=== PATIENT | male | born 1990 | race Caucasian/White ===

== ENCOUNTER 2017-06-06 13:03 | Emergency (ER) | payer SELFPAY ==
[~2017-06-06] VITALS: Wt 88.5 kg
[2017-06-06 13:41] LABS: BILIRUBIN NEGATIVE (NEGATIVE); BLOOD TRACE-LYSED (NEGATIVE); CLARITY SL CLOUDY (CLEAR); COLOR YELLOW (YELLOW); GLUCOSE NEGATIVE (NEGATIVE); KETONE 1+ (NEGATIVE); LEUKO ESTERASE NEGATIVE (NEGATIVE); NITRITE NEGATIVE (NEGATIVE); PH 5.5 (5.0-9.0); UROBILINOGEN 0.2 E.U./dl (0.2-1.0)
[2017-06-06 13:51] LABS: BASO # 0.1 10*3/uL (0.0-0.1); BASO % 0.5 % (0.0-1.0); EOS % 0.3 % (1.0-4.0); HEMOGLOBIN 15.1 g/dl (14.0-18.0); LYMPH # 1.4 10*3/uL (1.3-4.4); LYMPH % 13.5 % (27.0-41.0); MEAN CELL VOLUME 86.4 fl (80.0-94.0); MEAN CORPUSCULAR HGB CONC 33.6 g/dl (33.0-37.0); MEAN PLATELET VOLUME 9.4 fl (9.6-12.3); MONO # 0.4 10*3/uL (0.1-1.0); MONO % 4.2 % (3.0-9.0); NEUT # 8.3 10*3/uL (2.3-7.9); NEUT % 80.5 % (47.0-73.0); PLATELET COUNT AUTOMATED 297 10*3/uL (130-400); RED BLOOD COUNT 5.21 10*6/uL (4.50-5.90); RED CELL DISTRI WIDTH 11.8 % (0-14.5); WHITE BLOOD COUNT 10.3 10*3/uL (4.8-10.8)
[2017-06-06 14:01] LABS: BACTERIA 2+; MUCOUS 2+; RBC 0-2 rbc/hpf (0-2); WBC 0-2 wbc/hpf (0-5)
[2017-06-06 14:05] LABS: ALBUMIN 4.9 gm/dl (3.1-4.5); ALKALINE PHOSPHATASE 85 U/L (45-117); BUN 13 mg/dl (7-24); CHLORIDE 105 mmol/L (98-107); CREATININE 0.93 mg/dL (0.70-1.30); LIPASE 97 U/L (73-393); POTASSIUM 3.9 mmol/L (3.5-5.1); SGOT/AST 16 IU/L (3-35); SGPT/ALT 43 U/L (12-78); SODIUM 138 mmol/L (136-145); TOTAL PROTEIN 8.3 gm/dL (6.4-8.2)
== END 2017-06-06 16:43 | disposition home or self-care (01) ==
LOC: ED 13:03
PROVIDERS: Emergency Medicine
DX: Z11.3 Encounter for screening for infections with a predominantly sexual mode of transmission (principal); R30.0 Dysuria

== ENCOUNTER 2017-06-08 17:51 | Emergency (ER) | payer SELFPAY ==
[~2017-06-08] VITALS: Wt 88.5 kg
== END 2017-06-08 22:24 ==
LOC: ED 17:51
DX: Z00.8 Encounter for other general examination (principal); R03.0 Elevated blood-pressure reading, without diagnosis of hypertension; Z88.0 Allergy status to penicillin